=== PATIENT | male | born 1950 | race Two or more races ===

== ENCOUNTER → 2023-03-07 | Outpatient (CLI) | payer OTHER ==
[2023-03-07 11:48] LABS: Basophils # (auto) 0 10 ^3/uL (0-0.2); Basophils % (auto) 0.8 % (0.0-2.0); Eosinophils # (auto) 0.2 10 ^3/uL (0-0.8); Eosinophils % (auto) 11.5 % (0.0-7.0); Hematocrit 32.3 % (41.0-53.0); Hemoglobin 10.8 g/dL (13.5-17.5); Lymphocytes # (auto) 0.7 10 ^3/uL (0.4-5.4); Lymphocytes % (auto) 32.8 % (10.0-50.0); Mean Corpuscular Hemoglobin 29.8 pg (28.0-32.0); Mean Corpuscular Hgb Conc. 33.4 g/dL (32.0-36.0); Mean Corpuscular Volume 89.2 fL (80.0-100.0); Monocytes # (auto) 0.2 10 ^3/uL (0-1.3); Monocytes % (auto) 11.6 % (0.0-12.0); Neutrophils # (auto) 0.9 10 ^3/uL (1.6-8.6); Neutrophils % (auto) 43.3 % (37.0-80.0); Nucleated Red Blood Cells % 0.2 %; Red Blood Cells 3.62 10^6/uL (4.5-5.90); Red Cell Distribution Width 16.5 % (11.8-14.3); White Blood Cell 2.1 10^3/uL (4.4-10.8)
[2023-03-07 12:26] LABS: Albumin 3.1 g/dL (3.4-5.0); Calcium 8.5 mg/dL (8.5-10.1)
[2023-03-07 12:28] LABS: BUN/Creatinine Ratio 14.7 (10.0-20.0)
[2023-03-07 12:37] LABS: Total Protein 6.6 g/dL (6.4-8.2)
[2023-03-07 12:49] LABS: INR 1.12 (0.9-1.15); Partial Thromboplastin Time 28.6 SEC (24.5-34.5)
== END | disposition home or self-care (01) ==
LOC: LAB 11:25
PROVIDERS: ATTEND Internal Medicine Gastroenterology
DX: R13.14 Dysphagia, pharyngoesophageal phase (principal)
CPT/HCPCS: 36415; 80053; 85025; 85610; 85730

== ENCOUNTER → 2023-03-25 | Outpatient (CLI) | payer OTHER ==
[2023-03-25 07:33] LABS: Basophils # (auto) 0 10 ^3/uL (0-0.2); Basophils % (auto) 0.8 % (0.0-2.0); Eosinophils # (auto) 0.3 10 ^3/uL (0-0.8); Eosinophils % (auto) 10.4 % (0.0-7.0); Hematocrit 31.8 % (41.0-53.0); Hemoglobin 10.6 g/dL (13.5-17.5); Lymphocytes # (auto) 0.8 10 ^3/uL (0.4-5.4); Lymphocytes % (auto) 32.8 % (10.0-50.0); Mean Corpuscular Hemoglobin 29.3 pg (28.0-32.0); Mean Corpuscular Hgb Conc. 33.4 g/dL (32.0-36.0); Mean Corpuscular Volume 87.9 fL (80.0-100.0); Monocytes # (auto) 0.2 10 ^3/uL (0-1.3); Monocytes % (auto) 8.9 % (0.0-12.0); Neutrophils # (auto) 1.1 10 ^3/uL (1.6-8.6); Neutrophils % (auto) 47.1 % (37.0-80.0); Nucleated Red Blood Cells % 0.1 %; Red Blood Cells 3.62 10^6/uL (4.5-5.90); Red Cell Distribution Width 15.9 % (11.8-14.3); White Blood Cell 2.4 10^3/uL (4.4-10.8)
[2023-03-25 08:07] LABS: Calcium 8.3 mg/dL (8.5-10.1); Potassium 4.1 mmol/L (3.5-5.1)
[2023-03-25 08:10] LABS: BUN/Creatinine Ratio 12.9 (10.0-20.0); Bilirubin, Total 0.6 mg/dL (0.2-1.0); Total Protein 6.4 g/dL (6.4-8.2)
== END | disposition home or self-care (01) ==
LOC: LAB 06:58
PROVIDERS: ATTEND Specialist
DX: B20 Human immunodeficiency virus [HIV] disease (principal); Z68.25 Body mass index [BMI] 25.0-25.9, adult
CPT/HCPCS: 36415; 80053; 85025

== ENCOUNTER → 2023-06-16 | Outpatient (CLI) | payer OTHER ==
[2023-06-16 16:22] LABS: Basophils # (auto) 0 10 ^3/uL (0-0.2); Basophils % (auto) 0.7 % (0.0-2.0); Eosinophils # (auto) 0.3 10 ^3/uL (0-0.8); Eosinophils % (auto) 9.5 % (0.0-7.0); Hematocrit 34.2 % (41.0-53.0); Hemoglobin 11.5 g/dL (13.5-17.5); Lymphocytes # (auto) 0.9 10 ^3/uL (0.4-5.4); Lymphocytes % (auto) 33.8 % (10.0-50.0); Mean Corpuscular Hemoglobin 29.5 pg (28.0-32.0); Mean Corpuscular Hgb Conc. 33.7 g/dL (32.0-36.0); Mean Corpuscular Volume 87.6 fL (80.0-100.0); Monocytes # (auto) 0.2 10 ^3/uL (0-1.3); Monocytes % (auto) 9.1 % (0.0-12.0); Neutrophils # (auto) 1.3 10 ^3/uL (1.6-8.6); Neutrophils % (auto) 46.9 % (37.0-80.0); Nucleated Red Blood Cells % 0.1 %; Red Blood Cells 3.91 10^6/uL (4.5-5.90); Red Cell Distribution Width 16.9 % (11.8-14.3); White Blood Cell 2.7 10^3/uL (4.4-10.8)
[2023-06-16 16:44] LABS: INR 1.11 (0.9-1.15); Partial Thromboplastin Time 25.6 SEC (24.5-34.5); Prothrombin Time 11.6 sec (9.3-11.8)
[2023-06-16 16:47] LABS: Alanine Aminotransferase 13 U/L (7-40); Albumin 3.9 g/dL (3.2-4.8); Alkaline Phosphatase 51 U/L (46-116); Anion Gap 5 (5-15); Aspartate Aminotransferase 21 U/L (13-40); BUN/Creatinine Ratio 11.9 (10.0-20.0); Blood Urea Nitrogen 16 mg/dL (9-23); Calcium 9.1 mg/dL (8.7-10.4); Carbon Dioxide 25 mmol/L (20-30); Chloride 112 mmol/L (98-107); Glucose 93 mg/dL (74-106); Potassium 3.9 mmol/L (3.5-5.1); Sodium 142 mmol/L (136-145)
[2023-06-16 16:48] LABS: Bilirubin, Total 0.6 mg/dL (0.2-1.0); Total Protein 6.8 g/dL (5.7-8.2)
== END | disposition home or self-care (01) ==
LOC: LAB 16:03
PROVIDERS: ATTEND Internal Medicine Infectious Disease
DX: D61.818 Other pancytopenia (principal)
CPT/HCPCS: 36415; 80053; 85025; 85610; 85730; 86704; 86706; 86708; 86803; 87340

== ENCOUNTER → 2023-11-07 | Outpatient (CLI) | payer OTHER ==
[2023-11-07 08:27] LABS: Basophils # (auto) 0 10 ^3/uL (0-0.2); Basophils % (auto) 0.6 % (0.0-2.0); Eosinophils # (auto) 0.3 10 ^3/uL (0-0.8); Eosinophils % (auto) 12.4 % (0.0-7.0); Hematocrit 35.7 % (41.0-53.0); Hemoglobin 12.1 g/dL (13.5-17.5); Lymphocytes # (auto) 0.8 10 ^3/uL (0.4-5.4); Mean Corpuscular Hemoglobin 31.1 pg (28.0-32.0); Mean Corpuscular Hgb Conc. 33.9 g/dL (32.0-36.0); Monocytes # (auto) 0.2 10 ^3/uL (0-1.3); Monocytes % (auto) 7.5 % (0.0-12.0); Neutrophils # (auto) 1.1 10 ^3/uL (1.6-8.6); Neutrophils % (auto) 45.5 % (37.0-80.0); Red Blood Cells 3.88 10^6/uL (4.5-5.90); Red Cell Distribution Width 16.4 % (11.8-14.3); White Blood Cell 2.4 10^3/uL (4.4-10.8)
[2023-11-07 09:07] LABS: Alanine Aminotransferase 11 U/L (7-40); Albumin 3.5 g/dL (3.2-4.8); Alkaline Phosphatase 51 U/L (46-116); Anion Gap 6 (5-15); Aspartate Aminotransferase 24 U/L (13-40); BUN/Creatinine Ratio 9.2 (10.0-20.0); Blood Urea Nitrogen 11 mg/dL (9-23); Carbon Dioxide 25 mmol/L (20-30); Chloride 112 mmol/L (98-107); Glucose 88 mg/dL (74-106); LDL Cholesterol 85 mg/dL (< 100); Potassium 4.1 mmol/L (3.5-5.1); Sodium 143 mmol/L (136-145); Triglycerides 52 mg/dL (< 150)
[2023-11-07 09:08] LABS: Bilirubin, Total 1.3 mg/dL (0.2-1.0); Cholesterol 139 mg/dL (< 200); HDL Cholesterol 57 mg/dL (40-59); Total Protein 6.2 g/dL (5.7-8.2)
[2023-11-07 09:46] LABS: Hepatitis B Core Total AB Negative (Negative)
[2023-11-07 11:23] LABS: Hepatitis A Total Antibody Positive (Negative)
[2023-11-07 11:24] LABS: Hepatitis B Surface Antibody Negative (Negative); Hepatitis B Surface Antigen Negative (Negative); Hepatitis C Antibody Negative (Negative)
[2023-11-08 05:07] LABS: Basos 1 % (Not Estab.); Eos 11 % (Not Estab.); Eos (Absolute) 0.3 x10E3/uL (0.0-0.4); Hematocrit 35.3 % (37.5-51.0); Hematology Comments: Note: (.); Hemoglobin 11.9 g/dL (13.0-17.7); Lymphs 35 % (Not Estab.); Lymphs (Absolute) 0.9 x10E3/uL (0.7-3.1); MCH 31.6 pg (26.6-33.0); MCHC 33.7 g/dL (31.5-35.7); MCV 94 fL (79-97); Monocytes 8 % (Not Estab.); Monocytes (Absolute) 0.2 x10E3/uL (0.1-0.9); Neutrophils 45 % (Not Estab.); Neutrophils (Absolute) 1.2 x10E3/uL (1.4-7.0); Platelets 68 x10E3/uL (150-450); RBC 3.76 x10E6/uL (4.14-5.80); RDW 14.8 % (11.6-15.4); WBC 2.5 x10E3/uL (3.4-10.8)
[2023-11-08 12:07] LABS: % CD 4 Pos Lymph 37.8 % (30.8-58.5); Absolute CD 4 Helper 340 /uL (359-1519); CD4/CD8 Ratio 1.64 (0.92-3.72)
== END | disposition home or self-care (01) ==
LOC: LAB 08:00
PROVIDERS: ATTEND Internal Medicine Infectious Disease
DX: B20 Human immunodeficiency virus [HIV] disease (principal)
CPT/HCPCS: 36415; 80053; 80061; 83036; 85025; 86360; 86592; 86704; 86706; 86708; 86803; 87340

== ENCOUNTER 2023-11-23 09:54 | Day surgery (SDC) | payer OTHER ==
[2023-11-17 10:23] LABS: Basophils # (auto) 0 10 ^3/uL (0-0.2); Basophils % (auto) 0.7 % (0.0-2.0); Eosinophils # (auto) 0.3 10 ^3/uL (0-0.8); Eosinophils % (auto) 9.3 % (0.0-7.0); Hematocrit 38.3 % (41.0-53.0); Hemoglobin 12.5 g/dL (13.5-17.5); Lymphocytes # (auto) 1.1 10 ^3/uL (0.4-5.4); Lymphocytes % (auto) 32.2 % (10.0-50.0); Mean Corpuscular Hemoglobin 30.7 pg (28.0-32.0); Mean Corpuscular Hgb Conc. 32.7 g/dL (32.0-36.0); Mean Corpuscular Volume 93.8 fL (80.0-100.0); Monocytes # (auto) 0.4 10 ^3/uL (0-1.3); Neutrophils # (auto) 1.7 10 ^3/uL (1.6-8.6); Neutrophils % (auto) 47.8 % (37.0-80.0); Nucleated Red Blood Cells % 0.1 %; Red Blood Cells 4.09 10^6/uL (4.5-5.90); Red Cell Distribution Width 16.2 % (11.8-14.3); White Blood Cell 3.5 10^3/uL (4.4-10.8)
[2023-11-17 10:41] LABS: Urine Bacteria NONE SEEN /hpf (None Seen); Urine Blood 1+ /uL (Negative); Urine Clarity Clear (Clear); Urine Color Yellow (Yellow); Urine Protein, UAD TRACE (Negative); Urine Specific Gravity 1.023 (1.001-1.035); Urine Urobilinogen Normal (Negative); Urine WBC <1 /hpf (0 - 3)
[2023-11-17 10:43] LABS: Alanine Aminotransferase 14 U/L (7-40); Albumin 3.8 g/dL (3.2-4.8); Alkaline Phosphatase 54 U/L (46-116); Anion Gap 5 (5-15); Aspartate Aminotransferase 24 U/L (13-40); BUN/Creatinine Ratio 11.6 (10.0-20.0); Blood Urea Nitrogen 14 mg/dL (9-23); Calcium 9.1 mg/dL (8.5-10.1); Carbon Dioxide 26 mmol/L (20-30); Chloride 111 mmol/L (98-107); Glucose 108 mg/dL (74-106); Potassium 4.5 mmol/L (3.5-5.1); Sodium 142 mmol/L (136-145)
[2023-11-17 10:44] LABS: Total Protein 6.2 g/dL (5.7-8.2)
[2023-11-17 10:54] LABS: INR 1.1 (0.9-1.15); Partial Thromboplastin Time 28.3 SEC (24.5-34.5); Prothrombin Time 11.5 sec (9.3-11.8)
[~2023-11-23] VITALS: Ht 177.8 cm; Wt 84.4 kg
[~2023-11-23 09:54] MED LIST: ELVI1TAB5 PO
[2023-11-23] MEDS ORDERED: PROPOFOL 10 MG/ML 20 ML IV ONE (11:35)
[2023-11-23] MEDS ORDERED: fentaNYL CITRATE 100 MCG/2 ML VL ONE (11:35)
[2023-11-23 12:13] VITALS: TEMP 98.5; O2SAT 99
[2023-11-23 12:40] VITALS: BP 157/83; PULSE 75; RESP 18; O2SAT 97
== END 2023-11-23 12:45 | disposition home or self-care (01) ==
LOC: GI 09:54
PROVIDERS: ATTEND Internal Medicine Gastroenterology
DX: Z12.11 Encounter for screening for malignant neoplasm of colon (principal); K63.5 Polyp of colon; K44.9 Diaphragmatic hernia without obstruction or gangrene; R13.12 Dysphagia, oropharyngeal phase; K63.89 Other specified diseases of intestine; B20 Human immunodeficiency virus [HIV] disease; Z79.899 Other long term (current) drug therapy; Z98.890 Other specified postprocedural states
CPT/HCPCS: 36415; 43235; 45380; 80053; 81001; 85025; 85610; 85730; 88305; J2704; J3010; J7030

== ENCOUNTER → 2024-02-15 | Outpatient (CLI) | payer OTHER ==
[2024-02-15 08:50] LABS: Basophils # (auto) 0 10 ^3/uL (0-0.2); Basophils % (auto) 0.6 % (0.0-2.0); Eosinophils # (auto) 0.3 10 ^3/uL (0-0.8); Eosinophils % (auto) 10.5 % (0.0-7.0); Hematocrit 37.4 % (41.0-53.0); Hemoglobin 12.6 g/dL (13.5-17.5); Lymphocytes % (auto) 33.8 % (10.0-50.0); Mean Corpuscular Hemoglobin 31.7 pg (28.0-32.0); Mean Corpuscular Hgb Conc. 33.7 g/dL (32.0-36.0); Mean Corpuscular Volume 93.9 fL (80.0-100.0); Monocytes # (auto) 0.2 10 ^3/uL (0-1.3); Monocytes % (auto) 7.5 % (0.0-12.0); Neutrophils # (auto) 1.4 10 ^3/uL (1.6-8.6); Neutrophils % (auto) 47.6 % (37.0-80.0); Nucleated Red Blood Cells % 0.1 %; Red Blood Cells 3.98 10^6/uL (4.5-5.90); Red Cell Distribution Width 15.7 % (11.8-14.3); White Blood Cell 2.9 10^3/uL (4.4-10.8)
[2024-02-15 09:04] LABS: INR 1.1 (0.9-1.15); Prothrombin Time 11.6 sec (9.3-11.8)
[2024-02-15 09:08] LABS: Platelet Estimate Decreased
[2024-02-15 09:34] LABS: Alanine Aminotransferase 14 U/L (7-40); Albumin 3.7 g/dL (3.2-4.8); Alkaline Phosphatase 45 U/L (46-116)
[2024-02-15 09:35] LABS: Anion Gap 7 (5-15); Aspartate Aminotransferase 20 U/L (13-40); BUN/Creatinine Ratio 11.6 (10.0-20.0); Blood Urea Nitrogen 14 mg/dL (9-23); Calcium 9.5 mg/dL (8.5-10.1); Carbon Dioxide 26 mmol/L (20-30); Chloride 109 mmol/L (98-107); Glucose 108 mg/dL (74-106); Potassium 3.8 mmol/L (3.5-5.1); Sodium 142 mmol/L (136-145); Total Protein 6.5 g/dL (5.7-8.2)
[2024-02-15 17:12] LABS: Ferritin 19.2 ng/mL (22-322)
[2024-02-16 09:10] LABS: Hepatitis B Surface Antigen Negative (Negative)
[2024-02-16 09:31] LABS: Hepatitis C Antibody Negative (Negative)
== END | disposition home or self-care (01) ==
LOC: LAB 08:34
PROVIDERS: ATTEND Internal Medicine Gastroenterology
DX: K44.9 Diaphragmatic hernia without obstruction or gangrene (principal); R93.3 Abnormal findings on diagnostic imaging of other parts of digestive tract; R13.19 Other dysphagia; Z98.890 Other specified postprocedural states
CPT/HCPCS: 36415; 80053; 82607; 82728; 85025; 85610; 86803; 87340

== ENCOUNTER 2024-03-16 10:08 | Emergency (ER) | payer OTHER ==
[~2024-03-16] VITALS: Ht 175.3 cm; Wt 78.4 kg
[2024-03-16] MEDS: MAALOX PLUS or MAALOX 30 ML PO ONE (10:49)
[2024-03-16] MEDS: ONDANSETRON ODT 4 MG TAB PO ONE (10:49)
[2024-03-16 10:50] VITALS: BP 134/84; PULSE 74; RESP 16; TEMP 97.7; O2SAT 96
[2024-03-16] MEDS ORDERED: PANT40TA2 PO (10:59)
== END 2024-03-16 11:18 | disposition home or self-care (01) ==
LOC: ER 10:08
DX: Q79.0 Congenital diaphragmatic hernia (principal); K21.9 Gastro-esophageal reflux disease without esophagitis; R13.10 Dysphagia, unspecified; R11.10 Vomiting, unspecified; Z98.890 Other specified postprocedural states
CPT/HCPCS: 71046; 99283; Q0162

== ENCOUNTER 2024-05-23 10:53 | Emergency (ER) | payer OTHER ==
[~2024-05-23] VITALS: Ht 175.3 cm; Wt 74.3 kg
[~2024-05-23 10:53] MED LIST changes: +PANT40TA2 PO
[2024-05-23 11:46] LABS: Urine Bacteria None Seen /hpf (None Seen)
[2024-05-23 11:52] LABS: Urine Blood Negative /uL (Negative); Urine Clarity Clear (Clear); Urine Color Light-Yellow (Yellow); Urine Protein, UAD Negative (Negative); Urine Specific Gravity 1.011 (1.001-1.035); Urine Urobilinogen Normal (Negative); Urine WBC 1 /hpf (0 - 3); Urine pH 6.5 (5.0-9.0)
[2024-05-23 12:28] LABS: Basophils # (auto) 0 10 ^3/uL (0-0.2); Basophils % (auto) 0.6 % (0.0-2.0); Eosinophils # (auto) 0.4 10 ^3/uL (0-0.8); Eosinophils % (auto) 9.3 % (0.0-7.0); Hematocrit 37.2 % (41.0-53.0); Hemoglobin 12.8 g/dL (13.5-17.5); Lymphocytes # (auto) 1.1 10 ^3/uL (0.4-5.4); Lymphocytes % (auto) 22.8 % (10.0-50.0); Mean Corpuscular Hemoglobin 32.4 pg (28.0-32.0); Mean Corpuscular Hgb Conc. 34.4 g/dL (32.0-36.0); Mean Corpuscular Volume 94.1 fL (80.0-100.0); Monocytes # (auto) 0.3 10 ^3/uL (0-1.3); Monocytes % (auto) 6.4 % (0.0-12.0); Neutrophils # (auto) 2.9 10 ^3/uL (1.6-8.6); Neutrophils % (auto) 60.9 % (37.0-80.0); Nucleated Red Blood Cells % 0.1 %; Platelet Count (auto) 96 10^3/uL (140-450); Red Blood Cells 3.95 10^6/uL (4.5-5.90); Red Cell Distribution Width 15.6 % (11.8-14.3); White Blood Cell 4.7 10^3/uL (4.4-10.8)
[2024-05-23] MEDS ORDERED: HYDROmorphone HCL 2 MG/ML VL/or syr IV ONE (12:30)
[2024-05-23 12:47] LABS: Alanine Aminotransferase 24 U/L (7-40); Albumin 3.8 g/dL (3.2-4.8); Alkaline Phosphatase 55 U/L (46-116); Anion Gap 7 (5-15); Aspartate Aminotransferase 25 U/L (13-40); BUN/Creatinine Ratio 12.2 (10.0-20.0); Bilirubin, Total 1.2 mg/dL (0.2-1.0); Blood Urea Nitrogen 12 mg/dL (9-23); Calcium 9.1 mg/dL (8.7-10.4); Carbon Dioxide 24 mmol/L (20-30); Chloride 111 mmol/L (98-107); Glucose 90 mg/dL (74-106); Potassium 3.9 mmol/L (3.5-5.1); Sodium 142 mmol/L (136-145); Total Protein 6.3 g/dL (5.7-8.2)
[2024-05-23 13:02] LABS: Magnesium 1.8 mg/dL (1.6-2.6)
[2024-05-23 13:18] LABS: INR 1.13 (0.9-1.15); Partial Thromboplastin Time 26.2 SEC (24.5-34.5); Prothrombin Time 11.9 sec (9.3-11.8)
[2024-05-23] MEDS: SODIUM CHLORIDE 0.9% 1,000 ML IV ONE (14:15)
[2024-05-23] MEDS: IOHEXOL 300 MG/ML 100ML BOTTLE IJ ONE (15:16)
[2024-05-23] MEDS: ONDANSETRON HCL 4 MG/2 ML VIAL IV ONE (15:25)
[2024-05-23] MEDS: MORPHINE SULFATE INJ 2 MG/ml SYRG IV ONE (15:26)
[2024-05-23] MEDS ORDERED: HYDR-4902 PO (16:10)
[2024-05-23] MEDS ORDERED: ASPI-463 OR (16:10)
[2024-05-23 16:47] VITALS: BP 119/68; PULSE 71; RESP 16; TEMP 97.9; O2SAT 99
== END 2024-05-23 17:04 | disposition home or self-care (01) ==
LOC: ER 10:53
DX: K44.9 Diaphragmatic hernia without obstruction or gangrene (principal); K74.60 Unspecified cirrhosis of liver; I87.1 Compression of vein; K76.6 Portal hypertension; I86.8 Varicose veins of other specified sites; I10 Essential (primary) hypertension; E78.00 Pure hypercholesterolemia, unspecified; Z98.890 Other specified postprocedural states; Z79.899 Other long term (current) drug therapy
CPT/HCPCS: 36415; 71046; 74177; 80053; 81001; 83690; 83735; 85025; 85610; 85730; 93005; 96361; 96374; 96375; 99285; J2270; J2405; J7030; Q9967

== ENCOUNTER 2024-07-25 12:21 | Inpatient (IN) | payer OTHER ==
[~2024-07-25] VITALS: Ht 175.3 cm; Wt 84.3 kg
[~2024-07-25 12:21] MED LIST changes: +ASPI-463 OR; +HYDR-4902 PO
--- NOTE | 2024-07-25 13:04 | ED.PDOC ---
HPI (NEURO) HPI Comments HPI: Poor Historian. History obtained from the patient and the daughter on the phone. 74-year-old male with multiple medical problems sent by his doctor's office for two week history of neurological deficits of slurred speech and unsteady gait and some confusion. They sent him with a note requesting a CT scan of the head and cardiology evaluation. Patient is on aspirin. Patient has been ambulating with a cane in the last three days. Patient denies any acute pain anywhere. Patient denies any other symptoms. Patient denies any recent fall. Vitals: blood glucose of 112, respiratory rate of 16, SpO2 of 100%RA, pulse rate of 89, and a blood pressure of 180/72 PMHx: CAD, HIV, portal HTN, HLD, liver cirrhosis, current hernia "twisted behind breastbone," ASA QD, esophageal echophasia PSHx: esophageal procedure injection REVIEW OF SYSTEMS: CONSTITUTIONAL: Denies acute: fever, diaphoresis, chills, HEAD: Denies acute: headache, photophobia Eyes: Denies acute: Double vision, vision loss, eye pain, eye discharge. EARS: Denies acute: tinnitus, hearing loss, ear discharge, ear pain, THROAT: Denies acute: sore throat, swelling, difficulty swallowing , pain with swallowing, change in voice. NECK: Denies acute: neck pain, neck swelling, stiff neck. HEART: Denies acute : chest pain, palpitations, LUNGS: Denies acute: SOB, wheezing, cough, hemoptysis ABDOMEN: Denies acute: abdominal pain, Nausea, Vomiting, diarrhea, melena , hematemesis, hematochezia SKIN: Denies acute: rash, redness, lesions, itchiness. EXTREMITIES: Denies acute: calf pain, numbness, tingling, weakness, denies pain in extremity. Denies acute: Low back pain. Neuro: Denies acute: tremors, seizure like activity, change in mental status, loss of bowel or bladder function, cauda equina like symptoms. : Denies acute: dysuria, hematuria, flank pain, increase in urinary frequency. PSYCH: Denies acute: hallucination, suicidal ideation, homicidal ideation. PHYSICAL EXAM: General: no acute distress, awake and alert. Head: normocephalic, atraumatic. Neck: supple, trachea is midline, no swelling. Throat: Normal phonation. Eyes:, no erythema, no purulent discharge, no proptosis, no icterus. Heart: regular rate, regular rhythm, no significant murmur appreciated. Lungs: no apparent respiratory distress, Able to speak in full sentences. No wheezing, no rhonchi, no crackles. No stridors Clear to auscultation bilaterally. Abdomen: non tender to palpation, non distended, soft, no guarding, no rebound, + bowel sounds. Neuro: Awake, Alert, oriented to name, self, situation, follows commands GCS=15. Speech is normal. Skin: no petechia, no purpura, no cyanosis, non-pale, not jaundice. Lower extremities: --3/4 b/l - Pitting edema no deformity, no focal swelling, no calf TTP. Makes eye contact. moves all four extremities. Face: no apparent facial droop. Ambulating in the ED independently. Stroke: finger to nose cerebellar testing is intact. No pronator drift. Symmetrical senior operations analyst muscle strength b/l PERRLA, EOM-I CN 2-12 are grossly intact, No nystagmus. No nuchal rigidity, Kernig's sign, Brudzinski's sign, no meningeal signs. Time Seen by MD: 12:50 Primary Care Provider: BELKYS Reviewed Notes: Nurses Notes, Medications, Allergies Information Source: Patient, Relative Was a procedure done? Was a procedure done?: No Differential Diagnosis (SZ) Seizure: N/A CVA: Other (Stroke: DDX include TIA, TGA, CVA, intracranial bleed/mass/infection, cerebellar ischemia/infarct, carotid stenosis, lacunar infarct, vertebral/carotid artery dissection,, vertebrobasillary insufficiency, BPV, encephalopathy, electrolyte abnormality, thyroid disease, hydrocephalus, Cowden palsy, multiple sclerosis, hypoglycemia, drug toxicity, cardiac arrhythmia, todds paralysis, seizure.) X-Ray, Labs, Meds, VS Vital Signs Date Time Temp Pulse Resp B/P (MAP) Pulse Ox O2 Delivery O2 Flow Rate FiO2 07/25/24 13:08 98.4 84 16 150/72 (98) 100 Lab Test 07/25/24 16:35 07/25/24 14:19 07/25/24 13:21 Range/Units Troponin I High Sensitivity 10 10 10 </=54 ng/L White Blood Count 2.9 L 4.4-10.8 10^3/uL Red Blood Count 3.60 L 4.5-5.90 10^6/uL Hemoglobin 11.1 L 13.5-17.5 g/dL Hematocrit 32.6 L 41.0-53.0 % Mean Corpuscular Volume 90.6 80.0-100.0 fL Mean Corpuscular Hemoglobin 30.9 28.0-32.0 pg Mean Corpuscular Hemoglobin Concent 34.1 32.0-36.0 g/dL Red Cell Distribution Width 16.3 H 11.8-14.3 % Platelet Count 66 L 140-450 10^3/uL Mean Platelet Volume 8.5 6.9-10.8 fL Neutrophils (%) (Auto) 52.0 37.0-80.0 % Lymphocytes (%) (Auto) 29.3 10.0-50.0 % Monocytes (%) (Auto) 9.0 0.0-12.0 % Eosinophils (%) (Auto) 9.2 H 0.0-7.0 % Basophils (%) (Auto) 0.5 0.0-2.0 % Neutrophils # (Auto) 1.5 L 1.6-8.6 10 ^3/uL Lymphocytes # (Auto) 0.8 0.4-5.4 10 ^3/uL Monocytes # (Auto) 0.3 0-1.3 10 ^3/uL Eosinophils # (Auto) 0.3 0-0.8 10 ^3/uL Basophils # (Auto) 0 0-0.2 10 ^3/uL Nucleated Red Blood Cells 0.0 % Prothrombin Time 12.1 H 9.3-11.8 sec Prothrombin Time INR 1.15 0.9-1.15 Activated Partial Thromboplast Time 26.5 24.5-34.5 SEC Sodium Level 146 H 136-145 mmol/L Potassium Level 4.3 3.5-5.1 mmol/L Chloride Level 115 H 98-107 mmol/L Carbon Dioxide Level 23 20-31 mmol/L Anion Gap 8 5-15 Blood Urea Nitrogen 15 9-23 mg/dL Creatinine 1.23 0.700-1.30 mg/dL Glomerular Filtration Rate Calc 61 >90 mL/min BUN/Creatinine Ratio 12.2 10.0-20.0 Serum Glucose 120 H 74-106 mg/dL Lactic Acid Level 1.7 0.4-2.0 mmol/L Calcium Level 9.1 8.7-10.4 mg/dL Magnesium Level 2.0 1.6-2.6 mg/dL Total Bilirubin 1.1 H 0.2-1.0 mg/dL Aspartate Amino Transferase (AST) 23 13-40 U/L Alanine Aminotransferase (ALT) 20 7-40 U/L Alkaline Phosphatase 65 46-116 U/L Ammonia 99 H 11-32 umol/L Total Protein 6.3 5.7-8.2 g/dL Albumin 3.6 3.2-4.8 g/dL [place] [address] Ph: [phone] DIAGNOSTIC IMAGING Diagnostic Imaging Report : [id number] Signed PATIENT: TANI WEEMS ACCT: [id number] UNIT: [id number] : 1950 LOC: ER ROOM / BED: / AGE / SEX: 74 / M ADM STATUS: REG ER SERVICE [id number] ORDERING PHYSICIAN: ZAK HEART DO PROCEDURE(s): HWOCT - HEAD WITHOUT CONTRAST REASON: stroke like symptoms ORDER NUMBER(s): [id number], ACCESSION NUMBER(s): [id number] EXAM: CT HEAD WITHOUT CONTRAST HISTORY: stroke like symptoms COMPARISON: None TECHNIQUE: Axial images of the head were obtained and reformatted in coronal and sagittal planes. All CT scans at this medical facility are performed using dose modulation techniques as appropriate to a performed exam including the following: Automated exposure control was utilized; adjustment of the MA and/or KV according to patient size; and use of iterative reconstruction technique. CT Dose: CTDI volume is 53.58 mGy. Dose-length product is 1056.02 mGy*cm FINDINGS: There is mild generalized parenchymal atrophy . There are chronic small-vessel ischemic changes in the supratentorial white matter. There is no evidence of acute intracranial hemorrhage, mass, mass effect midline shift. There is no hydrocephalus or extra-axial fluid collection. Valdez-white matter differentiation is maintained.. There is a retention cyst in the left maxillary sinus. The remaining visualized paranasal sinuses and mastoid air cells are clear. The calvarium is intact. IMPRESSION: 1. No acute intracranial process. HS:Y ATED BY: CALVIN TRUONG MD DICTATED DATE/TIME: 07/25/241350 SIGNED BY: CALVIN TRUONG MD SIGNED DATE/TIME: 07/25/241350 CC: [place] [address] Ph: [phone] DIAGNOSTIC IMAGING Diagnostic Imaging Report : [id number] Signed PATIENT: TANI WEEMS ACCT: [id number] UNIT: [id number] : 1950 LOC: ER ROOM / BED: / AGE / SEX: 74 / M ADM STATUS: REG ER SERVICE [id number] ORDERING PHYSICIAN: ZAK HEART DO PROCEDURE(s): CXRP - CHEST PORTABLE REASON: stroke like symptoms ORDER NUMBER(s): [id number], ACCESSION NUMBER(s): [id number] EXAM: XY CHEST PORTABLE Indication:stroke like symptoms Technique: Single frontal view of the chest was obtained Comparison: None FINDINGS: Lines and Tubes: None Lungs: No focal consolidation. Pleura: No effusion. No pneumothorax. Cardiomediastinal contours: Unremarkable. Large hiatal hernia. Bones: No acute osseous abnormality. IMPRESSION: Large hiatal hernia. No acute cardiopulmonary disease. ATED BY: MARK CM MD DICTATED DATE/TIME: 07/25/241354 SIGNED BY: MARK CM MD SIGNED DATE/TIME: 07/25/241354 CC: Time of 1ST Reevaluation: 12:50 Reevaluation 1ST: Unchanged Patient Education/Counseling: Diagnosis, Treatment Family Education/Counseling: No Family Present Comments Patient presented with the above HPI.--stroke-like symptoms----workup was initiated. patient was found with the above mentioned diagnosis. Patient was given: Patient ED course and VS have been stabilized. Patient has been reassessed in the ED and remained in a stable condition. Pertinent incidental findings were discussed with the patient and/or family. Patient/family voices understanding and is agreeable with plan. Patient has been observed in the ED adequate length of time to insure improvement/stability. patient was admitted to the medicine team for further evaluation and treatment of their presentation. All the reports of any imaging studies that were ordered by myself were reviewed by myself. Departure 1 Departure Time of Disposition: 16:01 Impression: Primary Impression: Unsteady gait Additional Impressions: Slurred speech Stroke-like symptoms Disposition: ADMITTED INPATIENT Admit to: Tele Condition: Guarded Discharged With: Self Critical Care Note Critical Care Time?: Yes (45 min-critical care time only) I personally scribed for ZAK HEART DO ([email or web address]) on 07/25/24 at 13:04. Electronically submitted by Rohit Price ([email or web address]). I personally scribed for ZAK HEART DO ([email or web address]) on 07/25/24 at 15:05. Electronically submitted by Rohit Price ([email or web address]). ZAK HEART DO Jul 25, 2024 13:04
[2024-07-25 13:48] LABS: Basophils # (auto) 0 10 ^3/uL (0-0.2); Basophils % (auto) 0.5 % (0.0-2.0); Eosinophils # (auto) 0.3 10 ^3/uL (0-0.8); Eosinophils % (auto) 9.2 % (0.0-7.0); Hematocrit 32.6 % (41.0-53.0); Hemoglobin 11.1 g/dL (13.5-17.5); Lymphocytes # (auto) 0.8 10 ^3/uL (0.4-5.4); Lymphocytes % (auto) 29.3 % (10.0-50.0); Mean Corpuscular Hemoglobin 30.9 pg (28.0-32.0); Mean Corpuscular Hgb Conc. 34.1 g/dL (32.0-36.0); Mean Corpuscular Volume 90.6 fL (80.0-100.0); Monocytes # (auto) 0.3 10 ^3/uL (0-1.3); Neutrophils # (auto) 1.5 10 ^3/uL (1.6-8.6); Platelet Count (auto) 66 10^3/uL (140-450); Red Cell Distribution Width 16.3 % (11.8-14.3); White Blood Cell 2.9 10^3/uL (4.4-10.8)
--- NOTE | 2024-07-25 13:52 | DVH ---
EXAM: CT HEAD WITHOUT CONTRAST HISTORY: stroke like symptoms COMPARISON: None TECHNIQUE: Axial images of the head were obtained and reformatted in coronal and sagittal planes. All CT scans at this medical facility are performed using dose modulation techniques as appropriate t o a performed exam including the following: Automated exposure control was utilized; adjustment of th e MA and/or KV according to patient size; and use of iterative reconstruction technique. CT Dose: CTDI volume is 53.58 mGy. Dose-length product is 1056.02 mGy*cm FINDINGS: There is mild generalized parenchymal atrophy . There are chronic small-vessel ischemic changes in t he supratentorial white matter. There is no evidence of acute intracranial hemorrhage, mass, mass eff ect midline shift. There is no hydrocephalus or extra-axial fluid collection. Valdez-white matter diffe rentiation is maintained.. There is a retention cyst in the left maxillary sinus. The remaining visualized paranasal sinuses and mastoid air cells are clear. The calvarium is intact. IMPRESSION: 1. No acute intracranial process. HS:Y
--- NOTE | 2024-07-25 13:57 | DVH ---
EXAM: XY CHEST PORTABLE Indication:stroke like symptoms Technique: Single frontal view of the chest was obtained Comparison: None FINDINGS: Lines and Tubes: None Lungs: No focal consolidation. Pleura: No effusion. No pneumothorax. Cardiomediastinal contours: Unremarkable. Large hiatal hernia. Bones: No acute osseous abnormality. IMPRESSION: Large hiatal hernia. No acute cardiopulmonary disease.
[2024-07-25 14:08] LABS: Alanine Aminotransferase 20 U/L (7-40); Albumin 3.6 g/dL (3.2-4.8); Alkaline Phosphatase 65 U/L (46-116); Anion Gap 8 (5-15); Aspartate Aminotransferase 23 U/L (13-40); BUN/Creatinine Ratio 12.2 (10.0-20.0); Blood Urea Nitrogen 15 mg/dL (9-23); Calcium 9.1 mg/dL (8.7-10.4); Carbon Dioxide 23 mmol/L (20-31); Chloride 115 mmol/L (98-107); Glucose 120 mg/dL (74-106); INR 1.15 (0.9-1.15); Partial Thromboplastin Time 26.5 SEC (24.5-34.5); Potassium 4.3 mmol/L (3.5-5.1); Prothrombin Time 12.1 sec (9.3-11.8); Sodium 146 mmol/L (136-145)
[2024-07-25 14:09] LABS: Bilirubin, Total 1.1 mg/dL (0.2-1.0); Total Protein 6.3 g/dL (5.7-8.2)
[2024-07-25] MEDS ORDERED: ONDANSETRON HCL 4 MG/2 ML VIAL IV PRN (21:00)
[2024-07-25] MEDS ORDERED: NITROGLYCERIN 0.4 MG SL TAB SL PRN (21:00)
[2024-07-25] MEDS ORDERED: MORPHINE SULFATE INJ 2 MG/ml SYRG IV PRN ×2 (21:00)
[2024-07-25 21:37] LABS: Basophils # (auto) 0 10 ^3/uL (0-0.2); Basophils % (auto) 0.6 % (0.0-2.0); Eosinophils # (auto) 0.3 10 ^3/uL (0-0.8); Eosinophils % (auto) 8.4 % (0.0-7.0); Hematocrit 35.3 % (41.0-53.0); Hemoglobin 11.7 g/dL (13.5-17.5); Lymphocytes # (auto) 0.8 10 ^3/uL (0.4-5.4); Lymphocytes % (auto) 23.8 % (10.0-50.0); Mean Corpuscular Hemoglobin 30.4 pg (28.0-32.0); Mean Corpuscular Hgb Conc. 33.3 g/dL (32.0-36.0); Mean Corpuscular Volume 91.4 fL (80.0-100.0); Monocytes # (auto) 0.3 10 ^3/uL (0-1.3); Monocytes % (auto) 8.2 % (0.0-12.0); Nucleated Red Blood Cells % 0.1 %; Platelet Count (auto) 76 10^3/uL (140-450); Red Blood Cells 3.86 10^6/uL (4.5-5.90); Red Cell Distribution Width 16.2 % (11.8-14.3); White Blood Cell 3.4 10^3/uL (4.4-10.8)
[2024-07-25] MEDS: ENOXAPARIN SOD 40 MG/0.4 ML SYRINGE SC SCH (21:43)
[2024-07-25 21:54] LABS: Alanine Aminotransferase 19 U/L (7-40); Albumin 3.7 g/dL (3.2-4.8); Alkaline Phosphatase 68 U/L (46-116); Anion Gap 7 (5-15); Aspartate Aminotransferase 26 U/L (13-40); BUN/Creatinine Ratio 12.8 (10.0-20.0); Bilirubin, Total 1.1 mg/dL (0.2-1.0); Blood Urea Nitrogen 16 mg/dL (9-23); Calcium 9.2 mg/dL (8.7-10.4); Carbon Dioxide 23 mmol/L (20-31); Chloride 113 mmol/L (98-107); Glucose 112 mg/dL (74-106); Potassium 3.8 mmol/L (3.5-5.1); Sodium 143 mmol/L (136-145)
[2024-07-25 21:55] LABS: Total Protein 6.5 g/dL (5.7-8.2)
[2024-07-25 23:05] VITALS: PULSE 54; RESP 16; O2SAT 99
[2024-07-25] MEDS: SODIUM CHLOR 0.9% PF (SALINE LOCK) 10ML VIAL/SYR IV SCH (23:12)
[2024-07-25] MEDS ORDERED: hydrALAZINE HCL 20 MG/ML VL IV PRN (23:30)
--- NOTE | 2024-07-25 23:32 | DVHHPRES ---
History of Present Illness Resident Creating Document: BOBBY DOSS RESIDENT History of Present Illness TANI WEEMS is a 74 years old male is a 74 years old male with a PMH of CAD, HIV, portal HTN, HLD, liver cirrhosis, presented to the ED with the chief complaints of slurring of the speech and mild confusion for 2 weeks. Patient reported he is being unstable in walking, talking and drooling for 2 weeks. Patient went to visit his PCP, he advised to go to ED for further evaluation. On my assessment patient denies mechanical fall, nausea, vomiting, dizziness, palpitations and other associated symptoms. Patient has been ambulating with a cane for last 3 days. Past Medical History CAD, HIV, portal HTN, HLD, liver cirrhosis, Hiatal hernia Past Surgical History Unspecified throat procedure Family History: None Past Social History Lives with girlfriend. Denies smoking, alcohol and other drug abuse Review of Systems Constitutional: No: Fever, Chills, Sweats, Weakness, Malaise, Other Eyes: No: Pain, Vision change, Conjunctivae inflammation, Eyelid inflammation, Other, Redness ENT: No: Ear pain, Ear discharge, Nose pain, Nose discharge, Nose congestion, Mouth pain, Mouth swelling, Throat pain, Throat swelling, Other Respiratory: No: Cough, Dry, Shortness of breath, SOB with excertion, Wheezing, Hemoptysis, Pleuritic Pain, Sputum, Wheezing, Other Cardiovascular: No: Chest Pain, Palpitations, Orthopnea, Paroxysmal Noc. Dyspnea, Edema, Lt Headedness, Other Gastrointestinal: No: Nausea, Vomiting, Abdominal Pain, Diarrhea, Constipation, Melena, Hematochezia, Other Genitourinary: No Dysuria, No Frequency, No Incontinence, No Hematuria, No Retention, No Other Musculoskeletal: No: other, neck pain, shoulder pain, arm pain, back pain, hand pain, leg pain, foot pain Neurological: Weakness, Incoordination, Change in speech, Confusion Allergies: Coded Allergies: NO KNOWN ALLERGIES (Unverified , 11/17/23) Medications Current Medications Medications Dose Ordered Sig/Kaitlin Route Start Time Stop Time Status Last Admin Dose Admin Sodium Chloride 10 ml Q8HR IV 07/25/24 22:00 07/25/24 23:12 10 ML Ondansetron HCl 4 mg Q4HP PRN IV 07/25/24 21:00 Acetaminophen 650 mg Q6HP PRN PO 07/25/24 21:00 Morphine Sulfate 2 mg Q4HPRN PRN IV 07/25/24 21:00 Enoxaparin Sodium 40 mg DAILY SC 07/25/24 21:00 Hold Nitroglycerin 0.4 mg Q5MINP PRN SL 07/25/24 21:00 Morphine Sulfate 2 mg Q30M PRN IV 07/25/24 21:00 Hydralazine HCl 10 mg Q6HP PRN IV 07/25/24 23:30 UNV Lactulose 30 ml DAILY PO 07/26/24 10:00 UNV Exam Vital Signs Vital Signs Date Time Temp Pulse Resp B/P (MAP) Pulse Ox O2 Delivery O2 Flow Rate FiO2 07/25/24 23:05 54 16 99 Room Air* 0 21 07/25/24 23:05 148/85 (106) 07/25/24 13:08 98.4 Exam Pt is lying on bed General Appearance: Alert, Oriented X3, Cooperative, mild distress HEENT: Atraumatic, Mucous membranes moist/pink Respiratory: Clear to auscultation, decreased breath sounds Cardiovascular: Regular rate, Normal S1, Normal S2, No murmurs Abdominal: Active bowel sounds, Soft, no distention, no tenderness Extremities: No edema, Normal pulses, No tenderness/swelling Skin: No Significant rash, except past surgical scars Neuro: Slurred speech, unsteady gait, generalized weakness in 4 limbs Psych/Mental Status: Mental status NL, Mood NL Nurse was there as sharperone during examination Labs/Xrays Labs Test 07/25/24 22:50 07/25/24 21:25 07/25/24 16:35 07/25/24 13:21 Range/Units White Blood Count 3.4 L 4.4-10.8 10^3/uL Red Blood Count 3.86 L 4.5-5.90 10^6/uL Hemoglobin 11.7 L 13.5-17.5 g/dL Hematocrit 35.3 L 41.0-53.0 % Mean Corpuscular Volume 91.4 80.0-100.0 fL Mean Corpuscular Hemoglobin 30.4 28.0-32.0 pg Mean Corpuscular Hemoglobin Concent 33.3 32.0-36.0 g/dL Red Cell Distribution Width 16.2 H 11.8-14.3 % Platelet Count 76 L 140-450 10^3/uL Mean Platelet Volume 8.7 6.9-10.8 fL Neutrophils (%) (Auto) 59.0 37.0-80.0 % Lymphocytes (%) (Auto) 23.8 10.0-50.0 % Monocytes (%) (Auto) 8.2 0.0-12.0 % Eosinophils (%) (Auto) 8.4 H 0.0-7.0 % Basophils (%) (Auto) 0.6 0.0-2.0 % Neutrophils # (Auto) 2.0 1.6-8.6 10 ^3/uL Lymphocytes # (Auto) 0.8 0.4-5.4 10 ^3/uL Monocytes # (Auto) 0.3 0-1.3 10 ^3/uL Eosinophils # (Auto) 0.3 0-0.8 10 ^3/uL Basophils # (Auto) 0 0-0.2 10 ^3/uL Nucleated Red Blood Cells 0.1 % Sodium Level 143 136-145 mmol/L Potassium Level 3.8 3.5-5.1 mmol/L Chloride Level 113 H 98-107 mmol/L Carbon Dioxide Level 23 20-31 mmol/L Anion Gap 7 5-15 Blood Urea Nitrogen 16 9-23 mg/dL Creatinine 1.25 0.700-1.30 mg/dL Glomerular Filtration Rate Calc 60 >90 mL/min BUN/Creatinine Ratio 12.8 10.0-20.0 Serum Glucose 112 H 74-106 mg/dL Calcium Level 9.2 8.7-10.4 mg/dL Total Bilirubin 1.1 H 0.2-1.0 mg/dL Aspartate Amino Transferase (AST) 26 13-40 U/L Alanine Aminotransferase (ALT) 19 7-40 U/L Alkaline Phosphatase 68 46-116 U/L Total Protein 6.5 5.7-8.2 g/dL Albumin 3.7 3.2-4.8 g/dL Troponin I High Sensitivity 10 </=54 ng/L Lactic Acid Level 1.7 0.4-2.0 mmol/L Magnesium Level 2.0 1.6-2.6 mg/dL Assessment/Plan Assessment/Plan # rule out acute CVA # slurring of the speech # ? Acute metabolic encephalopathy # hyperammonemia secondary to cirrhosis -monitor lab, given lactulose -ordered head CT, no acute abnormalities -continuously monitored -fall precautions -consulted neurologist for further evaluation # uncontrolled high blood pressure -continuously monitor -hydralazine 10 mg p.r.n. # pancytopenia likely due to HIV vs cirrhosis -monitor lab for now # hiatal hernia -outpatient follow up -Protonix No VTE ppx for now Protonix Cardiac diet Reconciled home meds Goals of care discussed with the patient for more than 27 minutes: Full code status Case management discussed with Dr. Harvey, patient and nurse Plan discussed with: Patient My Orders Orders - BOBBY DOSS RESIDENT Procedure Category Date Status Time Admit ADMIT 07/25/24 Transmitted 20:56 Allergies RAEANN 07/25/24 In Process 20:56 Code Status CODE 07/25/24 Transmitted 20:56 2 Gm Sodium Diet DIET 07/26/24 Transmitted Breakfast Sodium Chloride Lock PHA 07/25/24 In Process (Saline Lock Ns) 22:00 Ondansetron Hcl PHA 07/25/24 In Process (Zofran) 21:00 Complete Blood Count LAB 07/26/24 Verified 04:00 Comprehensive LAB 07/26/24 Verified Metabolic Panel 04:00 Cardiac DIET 07/26/24 Transmitted Diet-2gna,Lofat,Lochol Breakfast Acetaminophen Tablet PHA 07/25/24 In Process (Tylenol Tablet) 21:00 Morphine Sulfate PHA 07/25/24 In Process Injection 21:00 Enoxaparin Sodium PHA 07/25/24 In Process (Lovenox) 21:00 Nitroglycerin PHA 07/25/24 In Process Sublingual (Ntrostat 21:00 Morphine Sulfate PHA 07/25/24 In Process Injection 21:00 Oxygen By Nasal RT 07/25/24 Transmitted Cannula 20:56 Stat Ekg For Chest RAEANN 07/25/24 In Process Pain 20:56 Notify Md Of Changes RAEANN 07/25/24 In Process From Base 20:56 Assistant Surveyor For RAEANN 07/25/24 In Process 24 Hours 20:56 Emergency Dysrhythmia RAEANN 07/25/24 In Process Protocol 20:56 Rhythm Strips Once RAEANN 07/25/24 In Process Every Shift 20:56 Ammonia LAB 07/25/24 In Process 22:42 * Neurology Consult CONS 07/25/24 Transmitted 23:24 Vitamin D, 25-Hydroxy LAB 07/25/24 In Process 23:24 Vitamin B12 LAB 07/25/24 In Process 23:24 Urinalysis LAB 07/25/24 Logged 23:24 Thyroid Stimulating LAB 07/25/24 In Process Hormone 23:24 PTPTT LAB 07/25/24 In Process 23:24 Hemoglobin A1c LAB 07/25/24 In Process 23:24 Drug Screen LAB 07/25/24 Logged 23:24 Blood Alcohol LAB 07/25/24 In Process 23:24 Hydralazine Injection PHA 07/25/24 Logged (Apresoline Inject 23:30 Lactulose Oral PHA 07/25/24 Logged 23:30 Lactulose Oral PHA 07/26/24 Logged 10:00 Date of Service: Jul 25, 2024 Billing Provider: DANITA HARVEY MD Common Visit Codes: [id number] INP/OBS CARE(HIGH) Secondary Visit Codes: [id number] CARE PLAN 30 MINUTES BOBBY DOSS RESIDENT Jul 25, 2024 23:32 DANITA HARVEY MD Jul 26, 2024 13:38
[2024-07-25 23:53] VITALS: BP 151/80; PULSE 71; RESP 18; TEMP 98.5; O2SAT 99
[2024-07-25 23:56] LABS: INR 1.18 (0.9-1.15); Partial Thromboplastin Time 28.5 SEC (24.5-34.5); Prothrombin Time 12.4 sec (9.3-11.8)
[2024-07-26] VITALS (7 sets, daily range): BP systolic 125–156; BP diastolic 66–80; PULSE 78–95; RESP 17–19; TEMP 97.4–99.6; O2SAT 97–99
[2024-07-26] MEDS ORDERED: ATOR40TA52 PO (00:36)
[2024-07-26] MEDS: PANTOPRAZOLE 40 MG/10 ML VIAL INJ IV ONE (05:57)
[2024-07-26] MEDS: LACTULOSE 20Gm/30ML SOLN PO ONE ×2 (05:57→15:31)
[2024-07-26] MEDS: ACETAMINOPHEN 325 MG TAB PO PRN (05:58)
[2024-07-26 07:12] LABS: Alanine Aminotransferase 16 U/L (7-40); Albumin 3.3 g/dL (3.2-4.8); Alkaline Phosphatase 52 U/L (46-116); Anion Gap 10 (5-15); Aspartate Aminotransferase 21 U/L (13-40); BUN/Creatinine Ratio 14.1 (10.0-20.0); Blood Urea Nitrogen 14 mg/dL (9-23); Calcium 8.8 mg/dL (8.7-10.4); Carbon Dioxide 20 mmol/L (20-31); Chloride 112 mmol/L (98-107); Glucose 82 mg/dL (74-106); Potassium 3.7 mmol/L (3.5-5.1); Sodium 142 mmol/L (136-145)
[2024-07-26 07:13] LABS: Bilirubin, Total 1.1 mg/dL (0.2-1.0); Total Protein 5.5 g/dL (5.7-8.2)
[2024-07-26 07:17] LABS: Basophils # (auto) 0 10 ^3/uL (0-0.2); Eosinophils # (auto) 0.2 10 ^3/uL (0-0.8); Hematocrit 31.4 % (41.0-53.0); Mean Corpuscular Volume 90.4 fL (80.0-100.0); Neutrophils # (auto) 2.2 10 ^3/uL (1.6-8.6); White Blood Cell 3.5 10^3/uL (4.4-10.8)
[2024-07-26 07:20] LABS: Basophils % (auto) 0.5 % (0.0-2.0); Eosinophils % (auto) 6.7 % (0.0-7.0); Hemoglobin 10.6 g/dL (13.5-17.5); Lymphocytes # (auto) 0.7 10 ^3/uL (0.4-5.4); Lymphocytes % (auto) 19.9 % (10.0-50.0); Mean Corpuscular Hemoglobin 30.6 pg (28.0-32.0); Mean Corpuscular Hgb Conc. 33.8 g/dL (32.0-36.0); Monocytes # (auto) 0.4 10 ^3/uL (0-1.3); Monocytes % (auto) 10.6 % (0.0-12.0); Neutrophils % (auto) 62.3 % (37.0-80.0); Platelet Count (auto) 61 10^3/uL (140-450); Red Blood Cells 3.48 10^6/uL (4.5-5.90)
[2024-07-26] MEDS: PANTOPRAZOLE 40 MG/10 ML VIAL INJ IV SCH (10:49)
[2024-07-26] MEDS: LACTULOSE 20Gm/30ML SOLN PO SCH (10:49)
[2024-07-26] MEDS ORDERED: LACT10SO3 PO (12:43)
--- NOTE | 2024-07-26 12:49 | DVH ---
PROCEDURE: MRI BRAIN HEAD WO CONTRAST INDICATION: 74 years old, Male; slurred speech. EXAM DATE: 07/26/2024 11:50 AM COMPARISON: CT HEAD WITHOUT CONTRAST on DOS: 07/25/24 TECHNIQUE: MRI of the brain without intravenous contrast. FINDINGS: Diffusion weighted images of the brain demonstrate no evidence of acute infarction. There is no evidence of acute intracranial hemorrhage, extra-axial collection, mass effect, midline s hift, herniation or hydrocephalus. The ventricles, sulci and cisterns appear age appropriate. Moderate changes of chronic microvascular ischemic disease. There are no signal abnormalities on the susceptibility weighted sequences. The major vascular flow voids are present. Left maxillary sinus mucous retention cyst. The surrounding soft tissues and osseous structures are unremarkable. IMPRESSION: 1. No evidence of acute infarction, intracranial hemorrhage, mass effect or hydrocephalus. Moderate c hanges of chronic microvascular ischemic disease. HS:Y
--- NOTE | 2024-07-26 12:49 | DVHPN2 ---
Subjective Seen and examined at bedside, spoke with daughter Barb. Patient was diagnosed with Liver Cirrhosis earlier this year. No history or alcohol abuse or drug use. Follows with Dr. Danielle for HIV. Changes from previous H/P or p: No Changes Eyes: No Pain, No Vision change, No Conjunctivae inflammation, No Eyelid inflammation, No Other, No Redness ENT: No Ear pain, No Ear discharge, No Nose pain, No Nose discharge, No Nose congestion, No Mouth pain, No Mouth swelling, No Throat pain, No Throat swelling, No Other Cardiovascular: No Chest Pain, No Palpitations, No Orthopnea, No Paroxysmal Noc. Dyspnea, No Edema, No Lt Headedness, No Other Respiratory: No Cough, No Dry, No Shortness of breath, No SOB with excertion, No Wheezing, No Hemoptysis, No Pleuritic Pain, No Sputum, No Other Gastrointestinal: No Nausea, No Vomiting, No Abdominal Pain, No Diarrhea, No Constipation, No Melena, No Hematochezia, No Other Genitourinary: No Dysuria, No Frequency, No Incontinence, No Hematuria, No Retention, No Other Musculoskeletal: No other, No neck pain, No shoulder pain, No arm pain, No back pain, No hand pain, No leg pain, No foot pain Objective Vitals Vital Signs Date Time Temp Pulse Resp B/P (MAP) Pulse Ox O2 Delivery O2 Flow Rate FiO2 07/26/24 09:00 97.9 95 17 132/78 (96) 97 97.9 07/25/24 23:53 Room Air* 0 21 Intake/Output Intake and Output 07/26/24 07:00 Intake Total 240 ml Balance 240 ml Intake Oral 240 ml # Voids 3 Exam Gen: in bed NAD Cvs: N S1/S2, RRR Resp: BLAE Abd: Soft, NT, BS+ [employer]: AAO x 4 Ext: Left tib fracture Medications Current Medications Medications Dose Ordered Sig/Kaitlin Route Start Time Stop Time Status Last Admin Dose Admin Sodium Chloride 10 ml Q8HR IV 07/25/24 22:00 07/26/24 05:57 10 ML Ondansetron HCl 4 mg Q4HP PRN IV 07/25/24 21:00 Acetaminophen 650 mg Q6HP PRN PO 07/25/24 21:00 07/26/24 05:58 650 MG Morphine Sulfate 2 mg Q4HPRN PRN IV 07/25/24 21:00 Nitroglycerin 0.4 mg Q5MINP PRN SL 07/25/24 21:00 Morphine Sulfate 2 mg Q30M PRN IV 07/25/24 21:00 Hydralazine HCl 10 mg Q6HP PRN IV 07/25/24 23:30 Lactulose 30 ml DAILY PO 07/26/24 10:00 07/26/24 10:49 30 ML Pantoprazole Sodium 40 mg DAILY IV 07/26/24 10:00 07/26/24 10:49 40 MG Laboratory Results Laboratory Tests 07/26/24 05:57 Chemistry Test 07/25/24 13:07/25/24 21:25 07/26/24 05:57 Albumin 3.6 g/dL (3.2-4.8) 3.7 g/dL (3.2-4.8) 3.3 g/dL (3.2-4.8) Calcium Level 9.1 mg/dL (8.7-10.4) 9.2 mg/dL (8.7-10.4) 8.8 mg/dL (8.7-10.4) Magnesium Level 2.0 mg/dL (1.6-2.6) Total Protein 6.3 g/dL (5.7-8.2) 6.5 g/dL (5.7-8.2) 5.5 g/dL (5.7-8.2) L Coagulation Test 07/25/24 13:07/25/24 21:25 Prothrombin Time 12.1 sec (9.3-11.8) H 12.4 sec (9.3-11.8) H Prothrombin Time INR 1.15 (0.9-1.15) 1.18 (0.9-1.15) H Activated Partial Thromboplast Time 26.5 SEC (24.5-34.5) 28.5 SEC (24.5-34.5) LFT Test 07/25/24 13:21 07/25/24 21:25 07/26/24 05:57 Alanine Aminotransferase (ALT) 20 U/L (7-40) 19 U/L (7-40) 16 U/L (7-40) Alkaline Phosphatase 65 U/L (46-116) 68 U/L (46-116) 52 U/L (46-116) Aspartate Amino Transferase (AST) 23 U/L (13-40) 26 U/L (13-40) 21 U/L (13-40) Total Bilirubin 1.1 mg/dL (0.2-1.0) H 1.1 mg/dL (0.2-1.0) H 1.1 mg/dL (0.2-1.0) H HgA1c, TSH Test 07/25/24 21:25 Hemoglobin A1c 5.1 % A1C (<5.7) Thyroid Stimulating Hormone (TSH) 3.84 uIU/mL (0.55-4.78) Assessment/Plan Assessment/Plan # Hepatic Encephalopathy - Cont Lactulose - GI as outpatient # Liver Cirrhosis - Non alcoholic - GI as outpatient # HIV - Cont meds as managed by Dr. Danielle # Left Tib Fracture - Ortho as outpatient Plan discussed with: Patient, Daughter My Orders Orders - DANITA MAYA MD Procedure Category Date Status Time Pt Request For Service PT 07/26/24 Logged 11:39 Brain Head Wo Contrast MRI 07/26/24 Taken 11:39 Afp Serum Tumor Marker LAB 07/26/24 Logged 12:39 Cyanocobalamin PHA 07/26/24 Logged Injection (Vitamin 12:45 Pt Request For Service PT 07/26/24 Transmitted 12:44 Basic Metabolic Panel LAB 07/27/24 Verified 04:00 Ammonia LAB 07/27/24 Verified 04:00 Lactulose Oral PHA 07/26/24 Logged 12:45 Date of Service: Jul 26, 2024 Billing Provider: DANITA MAYA MD Common Visit Codes: [id number] INP/OBS CARE(HIGH) DANITA MAYA MD Jul 26, 2024 12:49
[2024-07-26 12:57] LABS: Urine Bacteria None Seen /hpf (None Seen)
[2024-07-26 13:04] LABS: Urine Blood 1+ /uL (Negative); Urine Clarity Clear (Clear); Urine Color Yellow (Yellow); Urine Mucus FEW (None Seen); Urine Protein, UAD TRACE (Negative); Urine Specific Gravity 1.018 (1.001-1.035); Urine Urobilinogen Normal (Negative); Urine WBC 1 /hpf (0 - 3)
[2024-07-26 13:17] LABS: Amphetamine Screen, Urine Neg (NEGATIVE); Barbiturate Scree,Urine Neg (NEGATIVE); Benzodiazephine Screen, Urine Neg (NEGATIVE); Cannabinoid Screen, Urine Neg (NEGATIVE); Cocaine Screen, Urine Neg (NEGATIVE); Opiate Scree,Urine Neg (NEGATIVE); Phencyclidine Screen, Urine Neg (NEGATIVE)
[2024-07-26] MEDS: CYANOCOBALAMIN (B-12) 1000 MCG/1 ML VIAL IM ONE (15:31)
--- NOTE | 2024-07-26 17:19 | DVHPN2 ---
Date of Progress Note Date of Progress Note Date of Progress Note: 07/26/24 Date of Admission Date of Admission Date of Admission: Date of Admission: Jul 25, 2024 at 20:56 Past Medical History Past Medical History Past Medical History cirrhosis, hernia Family History Family History Family History: Patient reports no known family medical history. Allergies: Coded Allergies: NO KNOWN ALLERGIES (Unverified , 11/17/23) Home Meds Active Scripts Lactulose (Lactulose) 10 Gm/15 Ml [place], 30 ML PO BID for 30 Days, #60 ML Prov:DANITA MAYA MD 07/26/24 Hydrocodone-Acetaminophen (Hydrocodone Bitartrate/AC 5-325 mg) 1 Tab Tab, 1 TAB PO BID for 5 Days, #10 TAB Prov:ALEXANDRIA MCCORMACK MD 05/23/24 Aspirin (ASPIRIN/ENTERIC) 81 Mg Tab, 81 MG OR BID for 30 Days, #60 TAB Prov:ALEXANDRIA MCCORMACK MD 05/23/24 Pantoprazole Sodium Sesquihydr (Protonix) 40 Mg Tab, 40 MG PO DAILY for 14 Days, #14 TAB Prov:NATTY MCCAIN MD 03/16/24 Reported Medications Atorvastatin Calcium (ATORVASTATIN CALCIUM) 40 Mg Tab, 1 TAB PO DAILY 07/26/24 Aflnyhbcdyyt-Jyddexjtkt-Fhfnhq (Genvoya [id number] mg) 1 Tab Tab, 1 TAB PO QPM, TAB 11/17/23 Current Medications Current Medications Medications (Trade) Dose Ordered Sig/Kaitlin Route PRN Reason Start Time Stop Time Status Last Admin Sodium Chloride (Saline Lock Ns) 10 ml Q8HR IV 07/25/24 22:00 07/26/24 14:00 Ondansetron HCl (Zofran) 4 mg Q4HP PRN IV NAUSEA / VOMITING 07/25/24 21:00 Acetaminophen (Tylenol Tablet) 650 mg Q6HP PRN PO PAIN SCALE 1-3 OR TEMP>100.4 07/25/24 21:00 07/26/24 05:58 Morphine Sulfate 2 mg Q4HPRN PRN IV SEVERE PAIN (7-10 PAIN SCALE) 07/25/24 21:00 Enoxaparin Sodium (Lovenox) 40 mg DAILY SC 07/25/24 21:00 07/25/24 23:33 DC Nitroglycerin (Ntrostat Sublingual) 0.4 mg Q5MINP PRN SL FOR CHEST PAIN 07/25/24 21:00 Morphine Sulfate 2 mg Q30M PRN IV FOR CHEST PAIN 07/25/24 21:00 Hydralazine HCl (Apresoline Injection) 10 mg Q6HP PRN IV SBP>150 07/25/24 23:30 Lactulose 30 ml DAILY PO 07/26/24 10:00 07/26/24 10:49 Pantoprazole Sodium (Protonix) 40 mg DAILY IV 07/26/24 10:00 07/26/24 10:49 Physical Examination General Examination: Last Vital sign Vital Signs Date Time Temp Pulse Resp B/P (MAP) Pulse Ox O2 Delivery O2 Flow Rate FiO2 07/26/24 16:53 97.4 88 18 136/71 (92) 99 97.4 07/26/24 08:00 Room Air* 0 21 General: General: No apparent distress, appears comfortable. Cooperative. Extremities: Left leg, diffuse swelling, equal to right, mild pitting edema mild tenderness palpation medial tibial shaft nl ROM left knee, nl stability left knee Skin: intact Neurological Examination: Neurological Examination: Mental Status: Cranial Nerves: Motor Examination: Reflexes: Sensory: Coordination: Gait: NVI Labs: Labs: Laboratory Tests Test 07/25/24 13:21 07/25/24 14:19 07/25/24 16:35 07/25/24 21:25 Range/Units White Blood Count 2.9 L 3.4 L 4.4-10.8 10^3/uL Red Blood Count 3.60 L 3.86 L 4.5-5.90 10^6/uL Hemoglobin 11.1 L 11.7 L 13.5-17.5 g/dL Hematocrit 32.6 L 35.3 L 41.0-53.0 % Mean Corpuscular Volume 90.6 91.4 80.0-100.0 fL Mean Corpuscular Hemoglobin 30.9 30.4 28.0-32.0 pg Mean Corpuscular Hemoglobin Concent 34.1 33.3 32.0-36.0 g/dL Red Cell Distribution Width 16.3 H 16.2 H 11.8-14.3 % Platelet Count 66 L 76 L 140-450 10^3/uL Mean Platelet Volume 8.5 8.7 6.9-10.8 fL Neutrophils (%) (Auto) 52.0 59.0 37.0-80.0 % Lymphocytes (%) (Auto) 29.3 23.8 10.0-50.0 % Monocytes (%) (Auto) 9.0 8.2 0.0-12.0 % Eosinophils (%) (Auto) 9.2 H 8.4 H 0.0-7.0 % Basophils (%) (Auto) 0.5 0.6 0.0-2.0 % Neutrophils # (Auto) 1.5 L 2.0 1.6-8.6 10 ^3/uL Lymphocytes # (Auto) 0.8 0.8 0.4-5.4 10 ^3/uL Monocytes # (Auto) 0.3 0.3 0-1.3 10 ^3/uL Eosinophils # (Auto) 0.3 0.3 0-0.8 10 ^3/uL Basophils # (Auto) 0 0 0-0.2 10 ^3/uL Nucleated Red Blood Cells 0.0 0.1 % Prothrombin Time 12.1 H 12.4 H 9.3-11.8 sec Prothrombin Time INR 1.15 1.18 H 0.9-1.15 Activated Partial Thromboplast Time 26.5 28.5 24.5-34.5 SEC Sodium Level 146 H 143 136-145 mmol/L Potassium Level 4.3 3.8 3.5-5.1 mmol/L Chloride Level 115 H 113 H 98-107 mmol/L Carbon Dioxide Level 23 23 20-31 mmol/L Anion Gap 8 7 5-15 Blood Urea Nitrogen 15 16 9-23 mg/dL Creatinine 1.23 1.25 0.700-1.30 mg/dL Glomerular Filtration Rate Calc 61 60 >90 mL/min BUN/Creatinine Ratio 12.2 12.8 10.0-20.0 Serum Glucose 120 H 112 H 74-106 mg/dL Lactic Acid Level 1.7 0.4-2.0 mmol/L Calcium Level 9.1 9.2 8.7-10.4 mg/dL Magnesium Level 2.0 1.6-2.6 mg/dL Total Bilirubin 1.1 H 1.1 H 0.2-1.0 mg/dL Aspartate Amino Transferase (AST) 23 26 13-40 U/L Alanine Aminotransferase (ALT) 20 19 7-40 U/L Alkaline Phosphatase 65 68 46-116 U/L Ammonia 99 H 11-32 umol/L Troponin I High Sensitivity 10 10 10 </=54 ng/L Total Protein 6.3 6.5 5.7-8.2 g/dL Albumin 3.6 3.7 3.2-4.8 g/dL Hemoglobin A1c 5.1 <5.7 % A1C Vitamin B12 Level 370 211-911 pg/mL Vitamin D 25-Hydroxy 31.8 30.0-100 ng/mL Thyroid Stimulating Hormone (TSH) 3.84 0.55-4.78 uIU/mL Test 07/25/24 22:50 07/26/24 05:57 07/26/24 12:45 Range/Units Ammonia 94 H 11-32 umol/L Plasma/Serum Blood Alcohol 4.5 <10 mg/dL White Blood Count 3.5 L 4.4-10.8 10^3/uL Red Blood Count 3.48 L 4.5-5.90 10^6/uL Hemoglobin 10.6 L 13.5-17.5 g/dL Hematocrit 31.4 #L 41.0-53.0 % Mean Corpuscular Volume 90.4 80.0-100.0 fL Mean Corpuscular Hemoglobin 30.6 28.0-32.0 pg Mean Corpuscular Hemoglobin Concent 33.8 32.0-36.0 g/dL Red Cell Distribution Width 16.0 H 11.8-14.3 % Platelet Count 61 L 140-450 10^3/uL Mean Platelet Volume 8.7 6.9-10.8 fL Neutrophils (%) (Auto) 62.3 37.0-80.0 % Lymphocytes (%) (Auto) 19.9 10.0-50.0 % Monocytes (%) (Auto) 10.6 0.0-12.0 % Eosinophils (%) (Auto) 6.7 0.0-7.0 % Basophils (%) (Auto) 0.5 0.0-2.0 % Neutrophils # (Auto) 2.2 1.6-8.6 10 ^3/uL Lymphocytes # (Auto) 0.7 0.4-5.4 10 ^3/uL Monocytes # (Auto) 0.4 0-1.3 10 ^3/uL Eosinophils # (Auto) 0.2 0-0.8 10 ^3/uL Basophils # (Auto) 0 0-0.2 10 ^3/uL Nucleated Red Blood Cells 0.0 % Sodium Level 142 136-145 mmol/L Potassium Level 3.7 3.5-5.1 mmol/L Chloride Level 112 H 98-107 mmol/L Carbon Dioxide Level 20 20-31 mmol/L Anion Gap 10 5-15 Blood Urea Nitrogen 14 9-23 mg/dL Creatinine 0.99 0.700-1.30 mg/dL Glomerular Filtration Rate Calc 79 >90 mL/min BUN/Creatinine Ratio 14.1 10.0-20.0 Serum Glucose 82 74-106 mg/dL Calcium Level 8.8 8.7-10.4 mg/dL Total Bilirubin 1.1 H 0.2-1.0 mg/dL Aspartate Amino Transferase (AST) 21 13-40 U/L Alanine Aminotransferase (ALT) 16 7-40 U/L Alkaline Phosphatase 52 46-116 U/L Total Protein 5.5 L 5.7-8.2 g/dL Albumin 3.3 3.2-4.8 g/dL Tumor Marker Alpha Fetoprotein Pending Urine Color Yellow Yellow Urine Clarity Clear Clear Urine pH 6.0 5.0-9.0 Urine Specific [place] 1.018 1.001-1.035 Urine Protein Trace H Negative Urine Ketones Negative Negative Urine Blood 1+ H Negative /uL Urine Nitrite Negative Negative Urine Bilirubin Negative Negative Urine Urobilinogen Normal Negative mg/dL Urine Leukocyte Esterase Negative Negative /uL Urine RBC 9 0 - 3 /hpf Urine WBC 1 0 - 3 /hpf Urine Squamous Epithelial Cells None seen <5 /hpf Urine Bacteria None seen None Seen /hpf Urine Mucus Few None Seen Urine Glucose Normal Normal mg/dL Urine Opiates Screen Neg NEGATIVE Urine Fentanyl Screen Neg NEGATIVE Urine Barbiturates Screen Neg NEGATIVE Urine Phencyclidine Screen Neg NEGATIVE Urine Amphetamines Screen Neg NEGATIVE Urine Benzodiazepines Screen Neg NEGATIVE Urine Cocaine Screen Neg NEGATIVE Urine Cannabinoids Screen Neg NEGATIVE Imaging Imagin06/27/24 XR left tib fib read as tibial plateau fracture, If there is a plateau fracture, it is minimally displaced Assessment/Plan Assessment/Plan Assessment and Plan:Pedro Velázquez is a 74 year old male who presents with left knee h/o tibial plateau fracture 06/27/24 Pt has been FWB on left side adm 11/13/24 for cirrhosis, AMS pt already has follow up appointment sched with Dr Tamayo on 08/23/24 WBAT until then XRay left knee on that visit Plan discussed with: Patient PACO MONTAÑO MD Jul 26, 2024 17:19
[2024-07-27 05:00] VITALS: BP 130/73; PULSE 72; RESP 18; TEMP 98.1; O2SAT 95
[2024-07-27 05:34] LABS: Calcium 8.9 mg/dL (8.7-10.4); Chloride 114 mmol/L (98-107); Potassium 3.7 mmol/L (3.5-5.1); Sodium 145 mmol/L (136-145)
[2024-07-27 05:35] LABS: Anion Gap 10 (5-15); Carbon Dioxide 21 mmol/L (20-31)
[2024-07-27 05:40] LABS: BUN/Creatinine Ratio 11.9 (10.0-20.0); Blood Urea Nitrogen 14 mg/dL (9-23); Glucose 102 mg/dL (74-106)
[2024-07-27 08:00] VITALS: PULSE 87; RESP 20; O2SAT 98
[2024-07-27 09:00] VITALS: BP 123/84; PULSE 87; RESP 20; TEMP 98.6; O2SAT 98
[2024-07-27 13:00] VITALS: BP 133/68; PULSE 75; RESP 18; TEMP 98.8; O2SAT 97
--- NOTE | 2024-07-27 13:13 | DVHDS2 ---
Discharge Summary Date of Admission Jul 25, 2024 at 20:56 Date of Discharge: Jul 27, 2024 Admitting Diagnosis Hepatic Encephalopathy Labs/Diagnostic Data: Laboratory Results Test 07/27/24 05:01 07/26/24 12:45 07/26/24 05:57 07/25/24 22:50 Sodium Level 145 mmol/L (136-145) Potassium Level 3.7 mmol/L (3.5-5.1) Chloride Level 114 mmol/L (98-107) Carbon Dioxide Level 21 mmol/L (20-31) Anion Gap 10 (5-15) Blood Urea Nitrogen 14 mg/dL (9-23) Creatinine 1.18 mg/dL (0.700-1.30) Glomerular Filtration Rate Calc 64 mL/min (>90) BUN/Creatinine Ratio 11.9 (10.0-20.0) Serum Glucose 102 mg/dL (74-106) Calcium Level 8.9 mg/dL (8.7-10.4) Ammonia 66 umol/L (11-32) Urine Color Yellow (Yellow) Urine Clarity Clear (Clear) Urine pH 6.0 (5.0-9.0) Urine Specific [place] 1.018 (1.001-1.035) Urine Protein Trace (Negative) Urine Ketones Negative (Negative) Urine Blood 1+ /uL (Negative) Urine Nitrite Negative (Negative) Urine Bilirubin Negative (Negative) Urine Urobilinogen Normal mg/dL (Negative) Urine Leukocyte Esterase Negative /uL (Negative) Urine RBC 9 /hpf (0 - 3) Urine WBC 1 /hpf (0 - 3) Urine Squamous Epithelial Cells None seen /hpf (<5) Urine Bacteria None seen /hpf (None Seen) Urine Mucus Few (None Seen) Urine Glucose Normal mg/dL (Normal) Urine Opiates Screen Neg (NEGATIVE) Urine Fentanyl Screen Neg (NEGATIVE) Urine Barbiturates Screen Neg (NEGATIVE) Urine Phencyclidine Screen Neg (NEGATIVE) Urine Amphetamines Screen Neg (NEGATIVE) Urine Benzodiazepines Screen Neg (NEGATIVE) Urine Cocaine Screen Neg (NEGATIVE) Urine Cannabinoids Screen Neg (NEGATIVE) White Blood Count 3.5 10^3/uL (4.4-10.8) Red Blood Count 3.48 10^6/uL (4.5-5.90) Hemoglobin 10.6 g/dL (13.5-17.5) Hematocrit 31.4 % (41.0-53.0) Mean Corpuscular Volume 90.4 fL (80.0-100.0) Mean Corpuscular Hemoglobin 30.6 pg (28.0-32.0) Mean Corpuscular Hemoglobin Concent 33.8 g/dL (32.0-36.0) Red Cell Distribution Width 16.0 % (11.8-14.3) Platelet Count 61 10^3/uL (140-450) Mean Platelet Volume 8.7 fL (6.9-10.8) Neutrophils (%) (Auto) 62.3 % (37.0-80.0) Lymphocytes (%) (Auto) 19.9 % (10.0-50.0) Monocytes (%) (Auto) 10.6 % (0.0-12.0) Eosinophils (%) (Auto) 6.7 % (0.0-7.0) Basophils (%) (Auto) 0.5 % (0.0-2.0) Neutrophils # (Auto) 2.2 10 ^3/uL (1.6-8.6) Lymphocytes # (Auto) 0.7 10 ^3/uL (0.4-5.4) Monocytes # (Auto) 0.4 10 ^3/uL (0-1.3) Eosinophils # (Auto) 0.2 10 ^3/uL (0-0.8) Basophils # (Auto) 0 10 ^3/uL (0-0.2) Nucleated Red Blood Cells 0.0 % Total Bilirubin 1.1 mg/dL (0.2-1.0) Aspartate Amino Transferase (AST) 21 U/L (13-40) Alanine Aminotransferase (ALT) 16 U/L (7-40) Alkaline Phosphatase 52 U/L (46-116) Total Protein 5.5 g/dL (5.7-8.2) Albumin 3.3 g/dL (3.2-4.8) Tumor Marker Alpha Fetoprotein 2.4 ng/mL (0.0-8.4) Plasma/Serum Blood Alcohol 4.5 mg/dL (<10) Test 07/25/24 21:25 07/25/24 16:35 07/25/24 13:21 Prothrombin Time 12.4 sec (9.3-11.8) Prothrombin Time INR 1.18 (0.9-1.15) Activated Partial Thromboplast Time 28.5 SEC (24.5-34.5) Hemoglobin A1c 5.1 % A1C (<5.7) Vitamin B12 Level 370 pg/mL (211-911) Vitamin D 25-Hydroxy 31.8 ng/mL (30.0-100) Thyroid Stimulating Hormone (TSH) 3.84 uIU/mL (0.55-4.78) Troponin I High Sensitivity 10 ng/L (</=54) Lactic Acid Level 1.7 mmol/L (0.4-2.0) Magnesium Level 2.0 mg/dL (1.6-2.6) Other Laboratory Tests 07/27/24 05:01 07/26/24 05:57 Brief Hx & Hospital Course: Patient is a 74-year-old gentleman with a past medical history of HIV and liver cirrhosis nonalcoholic. Possibly idiopathic in origin unknown source. Patient was admitted for confusion secondary to hepatic encephalopathy. Ammonia was elevated, patient was started on lactulose patient's mental status has returned back to baseline. Patient will be discharged home with lactulose to follow up with GI Clinic as outpatient. I spoke with the patient's PCP update on plan of care. Yesterday's spoke with the patient's daughter who lives out of state and updated her about the patient's condition. Patient lives with his girlfriend at home. Operations or Procedures PROCEDURE: MRI BRAIN HEAD WO CONTRAST INDICATION: 74 years old, Male; slurred speech. EXAM DATE: 07/26/2024 11:50 AM COMPARISON: CT HEAD WITHOUT CONTRAST on DOS: 07/25/24 TECHNIQUE: MRI of the brain without intravenous contrast. FINDINGS: Diffusion weighted images of the brain demonstrate no evidence of acute infarction. There is no evidence of acute intracranial hemorrhage, extra-axial collection, mass effect, midline shift, herniation or hydrocephalus. The ventricles, sulci and cisterns appear age appropriate. Moderate changes of chronic microvascular ischemic disease. There are no signal abnormalities on the susceptibility weighted sequences. The major vascular flow voids are present. Left maxillary sinus mucous retention cyst. The surrounding soft tissues and osseous structures are unremarkable. IMPRESSION: 1. No evidence of acute infarction, intracranial hemorrhage, mass effect or hydrocephalus. Moderate changes of chronic microvascular ischemic disease. Condition at Discharge: Poor Final Diagnosis/Problems List # Hepatic Encephalopathy - Cont Lactulose - GI as outpatient # Liver Cirrhosis - Non alcoholic - GI as outpatient # HIV - Cont meds as managed by Dr. Danielle # Left Tib Fracture - Ortho as outpatient Discharge Disposition: Home Discharge Instruct/Medications Diet: Cardiac 2g Na,low cholest Activity: Light activity Follow Up/Referral: Dr. Danielle Medications: See Med Recc Discharge Statement: "Patient was advised to return to the ER or call 911 if any headaches, dizziness, shortness of breath, chest pain, abdominal pain, bleeding, fevers, or worsening of medical condition. Patient was counseled about treatment plan, medications, possible side effects, patientverbalized understanding. All questions were answered to the best of my ability. This discharge took greater then 30 minutes in planning, reviewing documentation, counseling the patient, and discussing with other team members." ASSESSMENT ASSESSMENT Assessment Date of Service: Jul 27, 2024 Billing Provider: DANITA MAYA MD Common Visit Codes: [id number]/OBS DISCH DAY >30min DANITA MAYA MD Jul 27, 2024 13:13
[2024-07-27 16:18] VITALS: BP 133/68; PULSE 75; RESP 18; TEMP 37.1; O2SAT 97
== END 2024-07-27 17:00 | disposition home or self-care (01) | DRG 441 ==
LOC: ER 12:21 → OVERFLOW 20:56 → CENTRAL 23:50
PROVIDERS: ATTEND Internal Medicine
DX: K76.82 Hepatic encephalopathy (principal); G93.41 Metabolic encephalopathy; B20 Human immunodeficiency virus [HIV] disease; K76.6 Portal hypertension; E72.20 Disorder of urea cycle metabolism, unspecified; K74.60 Unspecified cirrhosis of liver; K44.9 Diaphragmatic hernia without obstruction or gangrene; I25.10 Atherosclerotic heart disease of native coronary artery without angina pectoris; E78.5 Hyperlipidemia, unspecified; R47.81 Slurred speech; Z79.82 Long term (current) use of aspirin; Z79.899 Other long term (current) drug therapy
CPT/HCPCS: 36415; 70450; 70551; 71045; 80048; 80053; 80307; 80320; 81001; 82105; 82140; 82306; 82607; 83036; 83605; 83735; 84443; 84484; 85025; 85610; 85730; 97110; 97116; 97163; 97530; 99291; G0378; J2470

== ENCOUNTER → 2024-09-24 | Outpatient (CLI) | payer OTHER ==
[~2024-09-24] MED LIST changes: +ATOR40TA52 PO; -HYDR-4902 PO; +LACT10SO3 PO
[2024-09-24 08:27] LABS: Basophils # (auto) 0 10 ^3/uL (0-0.2); Basophils % (auto) 0.8 % (0.0-2.0); Eosinophils # (auto) 0.4 10 ^3/uL (0-0.8); Eosinophils % (auto) 13.8 % (0.0-7.0); Hematocrit 31.7 % (41.0-53.0); Hemoglobin 10.6 g/dL (13.5-17.5); Lymphocytes # (auto) 0.8 10 ^3/uL (0.4-5.4); Lymphocytes % (auto) 26.7 % (10.0-50.0); Mean Corpuscular Hgb Conc. 33.5 g/dL (32.0-36.0); Mean Corpuscular Volume 89.6 fL (80.0-100.0); Monocytes # (auto) 0.3 10 ^3/uL (0-1.3); Monocytes % (auto) 10.1 % (0.0-12.0); Neutrophils # (auto) 1.4 10 ^3/uL (1.6-8.6); Neutrophils % (auto) 48.6 % (37.0-80.0); Nucleated Red Blood Cells % 0.2 %; Platelet Count (auto) 70 10^3/uL (140-450); Red Blood Cells 3.53 10^6/uL (4.5-5.90); Red Cell Distribution Width 17.3 % (11.8-14.3); White Blood Cell 2.8 10^3/uL (4.4-10.8)
[2024-09-24 08:59] LABS: Alanine Aminotransferase 27 U/L (7-40); Albumin 3.4 g/dL (3.2-4.8); Alkaline Phosphatase 58 U/L (46-116); Anion Gap 6 (5-15); Aspartate Aminotransferase 35 U/L (13-40); BUN/Creatinine Ratio 10.4 (10.0-20.0); Blood Urea Nitrogen 14 mg/dL (9-23); Calcium 8.8 mg/dL (8.7-10.4); Carbon Dioxide 24 mmol/L (20-31); Chloride 114 mmol/L (98-107); Glucose 94 mg/dL (74-106); LDL Cholesterol 55 mg/dL (< 100); Potassium 4.2 mmol/L (3.5-5.1); Sodium 144 mmol/L (136-145); Triglycerides 60 mg/dL (< 150)
[2024-09-24 09:01] LABS: Cholesterol 133 mg/dL (< 200); HDL Cholesterol 66 mg/dL (40-59); Total Protein 5.8 g/dL (5.7-8.2)
[2024-09-25 13:06] LABS: Free Thyroxine Index 1.5 (1.2-4.9); T3 Uptake 25 % (24-39)
[2024-09-25 14:06] LABS: % CD 4 Pos Lymph 43.7 % (30.8-58.5); CD4/CD8 Ratio 1.99 (0.92-3.72)
[2024-09-26 06:06] LABS: Absolute CD 4 Helper 350 /uL (359-1519); Basos 1 % (Not Estab.); Eos 13 % (Not Estab.); Eos (Absolute) 0.4 x10E3/uL (0.0-0.4); Hematocrit 32.9 % (37.5-51.0); Hematology Comments: Note: (.); Hemoglobin 10.3 g/dL (13.0-17.7); Immature Granulocytes (Abs) 0 x10E3/uL (0.0-0.1); Lymphs 28 % (Not Estab.); Lymphs (Absolute) 0.8 x10E3/uL (0.7-3.1); MCH 29.4 pg (26.6-33.0); MCHC 31.3 g/dL (31.5-35.7); MCV 94 fL (79-97); Monocytes 11 % (Not Estab.); Monocytes (Absolute) 0.3 x10E3/uL (0.1-0.9); Neutrophils 47 % (Not Estab.); Neutrophils (Absolute) 1.3 x10E3/uL (1.4-7.0); Platelets 79 x10E3/uL (150-450); RDW 14.9 % (11.6-15.4); WBC 2.9 x10E3/uL (3.4-10.8)
== END | disposition home or self-care (01) ==
LOC: LAB 07:47
DX: S82.202A Unspecified fracture of shaft of left tibia, initial encounter for closed fracture (principal); B20 Human immunodeficiency virus [HIV] disease; K74.69 Other cirrhosis of liver; E03.9 Hypothyroidism, unspecified; X58.XXXA Exposure to other specified factors, initial encounter; Y93.89 Activity, other specified; Y92.89 Other specified places as the place of occurrence of the external cause; Y99.8 Other external cause status
CPT/HCPCS: 36415; 80053; 80061; 84443; 85025; 86360

== ENCOUNTER → 2024-10-04 | Outpatient (CLI) | payer OTHER | END | disposition home or self-care (01) | LOC: LAB 08:44 | DX: K76.82 Hepatic encephalopathy (principal); K74.69 Other cirrhosis of liver | CPT/HCPCS: 82140; 84153 ==

== ENCOUNTER → 2024-11-07 | Outpatient (CLI) | payer OTHER | END | disposition home or self-care (01) | LOC: LAB 12:28 | DX: K74.69 Other cirrhosis of liver (principal); B20 Human immunodeficiency virus [HIV] disease | CPT/HCPCS: 82140 ==

== ENCOUNTER → 2024-12-19 | Outpatient (CLI) | payer OTHER ==
[2024-12-19 08:33] LABS: Alanine Aminotransferase 27 U/L (7-40); Albumin 4.1 g/dL (3.2-4.8); Alkaline Phosphatase 58 U/L (46-116); Anion Gap 11 (5-15); Aspartate Aminotransferase 36 U/L (13-40); BUN/Creatinine Ratio 10.3 (10.0-20.0); Blood Urea Nitrogen 21 mg/dL (9-23); Calcium 9.9 mg/dL (8.7-10.4); Carbon Dioxide 21 mmol/L (20-31); Glucose 97 mg/dL (74-106); Sodium 140 mmol/L (136-145); Total Protein 6.7 g/dL (5.7-8.2)
[2024-12-19 08:36] LABS: Chloride 108 mmol/L (98-107); Potassium 5.2 mmol/L (3.5-5.1)
[2024-12-19 08:41] LABS: Basophils # (auto) 0 10 ^3/uL (0-0.2); Basophils % (auto) 0.7 % (0.0-2.0); Eosinophils # (auto) 0.5 10 ^3/uL (0-0.8); Hematocrit 33.2 % (41.0-53.0); Hemoglobin 11.2 g/dL (13.5-17.5); Lymphocytes # (auto) 1.6 10 ^3/uL (0.4-5.4); Lymphocytes % (auto) 33.3 % (10.0-50.0); Mean Corpuscular Hemoglobin 28.8 pg (28.0-32.0); Mean Corpuscular Hgb Conc. 33.7 g/dL (32.0-36.0); Mean Corpuscular Volume 85.6 fL (80.0-100.0); Monocytes # (auto) 0.4 10 ^3/uL (0-1.3); Neutrophils # (auto) 2.3 10 ^3/uL (1.6-8.6); Platelet Count (auto) 82 10^3/uL (140-450); Red Blood Cells 3.87 10^6/uL (4.5-5.90); Red Cell Distribution Width 17.1 % (11.8-14.3); White Blood Cell 4.7 10^3/uL (4.4-10.8)
[2024-12-19 09:25] LABS: INR 1.11 (0.9-1.15); Prothrombin Time 11.6 sec (9.3-11.8)
== END | disposition home or self-care (01) ==
LOC: LAB 08:03
PROVIDERS: ATTEND Internal Medicine Gastroenterology
DX: K44.9 Diaphragmatic hernia without obstruction or gangrene (principal); R94.5 Abnormal results of liver function studies; K74.60 Unspecified cirrhosis of liver
CPT/HCPCS: 36415; 80053; 82140; 85025; 85610

== ENCOUNTER → 2025-02-05 | Outpatient (CLI) | payer OTHER ==
[2025-02-05 08:37] LABS: Basophils # (auto) 0 10 ^3/uL (0-0.2); Basophils % (auto) 0.7 % (0.0-2.0); Eosinophils # (auto) 0.2 10 ^3/uL (0-0.8); Eosinophils % (auto) 6.5 % (0.0-7.0); Hematocrit 31.2 % (41.0-53.0); Hemoglobin 10.1 g/dL (13.5-17.5); Lymphocytes # (auto) 0.9 10 ^3/uL (0.4-5.4); Lymphocytes % (auto) 26.9 % (10.0-50.0); Mean Corpuscular Hemoglobin 27.9 pg (28.0-32.0); Mean Corpuscular Hgb Conc. 32.6 g/dL (32.0-36.0); Mean Corpuscular Volume 85.8 fL (80.0-100.0); Monocytes # (auto) 0.3 10 ^3/uL (0-1.3); Monocytes % (auto) 9.2 % (0.0-12.0); Neutrophils # (auto) 1.8 10 ^3/uL (1.6-8.6); Neutrophils % (auto) 56.7 % (37.0-80.0); Nucleated Red Blood Cells % 0.3 %; Red Blood Cells 3.63 10^6/uL (4.5-5.90); Red Cell Distribution Width 18.5 % (11.8-14.3); White Blood Cell 3.2 10^3/uL (4.4-10.8)
[2025-02-05 08:39] LABS: Platelet Count (auto) 87 10^3/uL (140-450)
[2025-02-05 08:57] LABS: Alanine Aminotransferase 21 U/L (7-40); Albumin 3.9 g/dL (3.2-4.8); Alkaline Phosphatase 46 U/L (46-116); Anion Gap 10 (5-15); Aspartate Aminotransferase 26 U/L (13-40); BUN/Creatinine Ratio 10.8 (10.0-20.0); Bilirubin, Total 0.9 mg/dL (0.2-1.0); Blood Urea Nitrogen 22 mg/dL (9-23); Calcium 9.5 mg/dL (8.7-10.4); Carbon Dioxide 22 mmol/L (20-31); Chloride 111 mmol/L (98-107); Cholesterol 152 mg/dL (< 200); Glucose 95 mg/dL (74-106); HDL Cholesterol 71 mg/dL (40-59); LDL Cholesterol 62 mg/dL (< 100); Potassium 4.8 mmol/L (3.5-5.1); Sodium 143 mmol/L (136-145); Total Protein 6.4 g/dL (5.7-8.2); Triglycerides 64 mg/dL (< 150)
[2025-02-06 12:07] LABS: % CD 4 Pos Lymph 37.3 % (30.8-58.5); % CD 8 Pos Lymph 19.4 % (12.0-35.5); Absolute CD 4 Helper 373 /uL (359-1519); Basos 1 % (Not Estab.); CD4/CD8 Ratio 1.92 (0.92-3.72); Eos 7 % (Not Estab.); Eos (Absolute) 0.2 x10E3/uL (0.0-0.4); Hematology Comments: Note: (.); Hemoglobin 9.9 g/dL (13.0-17.7); Immature Granulocytes (Abs) 0 x10E3/uL (0.0-0.1); Lymphs 28 % (Not Estab.); MCH 28.4 pg (26.6-33.0); MCHC 30.9 g/dL (31.5-35.7); MCV 92 fL (79-97); Monocytes 8 % (Not Estab.); Monocytes (Absolute) 0.3 x10E3/uL (0.1-0.9); Neutrophils 56 % (Not Estab.); Neutrophils (Absolute) 1.9 x10E3/uL (1.4-7.0); Platelets 98 x10E3/uL (150-450); RBC 3.49 x10E6/uL (4.14-5.80); RDW 15.9 % (11.6-15.4); WBC 3.4 x10E3/uL (3.4-10.8)
== END | disposition home or self-care (01) ==
LOC: LAB 07:45
PROVIDERS: ATTEND Specialist
DX: I12.9 Hypertensive chronic kidney disease with stage 1 through stage 4 chronic kidney disease, or unspecified chronic kidney disease (principal); N18.2 Chronic kidney disease, stage 2 (mild); K74.60 Unspecified cirrhosis of liver; D69.6 Thrombocytopenia, unspecified; K74.69 Other cirrhosis of liver; K76.6 Portal hypertension; H26.222 Cataract secondary to ocular disorders (degenerative) (inflammatory), left eye; E03.9 Hypothyroidism, unspecified; K22.0 Achalasia of cardia; R16.1 Splenomegaly, not elsewhere classified
CPT/HCPCS: 36415; 80053; 80061; 82140; 84153; 85025; 86360